=== PATIENT | female | born 1945 | race Caucasian/White ===

== ENCOUNTER → 2020-06-02 | Outpatient (CLI) | payer MEDICARE ==
--- NOTE | 2020-06-02 15:48 | BD ---
EXAMINATION TYPE: Axial Bone Density DATE OF EXAM: 06/02/2020 COMPARISON: NONE CLINICAL HISTORY: 74-year-old female postmenopausal screening Height: 5 FT 6 1/2 IN Weight: 226 FRAX RISK QUESTIONS: Alcohol (3 or more units per day): NO Family History (Parent hip fracture): NO Glucocorticoids (More than 3mos): NO (Ex: prednisone, prednisolone, methylprednisolone, dexamethasone, and hydrocortisone). History of Fracture in Adulthood: NO Secondary Osteoporosis: 1. Type 1 Diabetes: NO 2. Hyperthyroidism: NO 3. Menopause before 45: NO 4. Malnutrition: NO 5. Chronic liver disease: NO Rheumatoid Arthritis: NO Current Tobacco Use: NO RISK FACTORS HISTORY OF: Active: SOMEWHAT Postmenopausal woman: UNSURE Take estrogen and/or progesterone medications: TOOK ONLY FOR ABOUT SIX MONTHS LONG AGO MEDICATIONS: Additional Medications: METFORMIN, BLOOD PRESSURE MEDS, CHOLESTEROL MEDS, INHALER FOR COPD NEEDED Additional History: EXAM MEASUREMENTS: Bone mineral densitometry was performed using the [id number] System. Bone mineral density as measured about the Lumbar spine is: ----- L1-L4(G/cm2): 1.081 T Score Values are as follows: ----- L2: -1.3 ----- L3: -0.5 ----- L4: -1.1 ----- L1-L4: -0.8 BASELINE Bone mineral density about the R hip (g/cm2): 0.706 Bone mineral density about the L hip (g/cm2): 0.682 T Score values are as follows: -----R Neck: -2.4 -----L Neck: -2.6 -----R Total: -2.6 -----L Total: -2.6 BASELINE IMPRESSION: Osteoporosis (T Score less than -2.5). There is increased fracture risk and therapy is usually indicated based on age. Re-Screen 1-2 years. NOTE: T-SCORE=SD OF THE YOUNG ADULT MEAN.
== END | disposition home or self-care (01) ==
LOC: RADBDWWP 09:07
PROVIDERS: ATTEND Family Medicine
DX: M81.8 Other osteoporosis without current pathological fracture (principal)
CPT/HCPCS: 77080

== ENCOUNTER → 2022-06-23 | Outpatient (CLI) | payer MEDICARE ==
--- NOTE | 2022-06-23 18:17 | BD ---
EXAMINATION TYPE: Axial Bone Density DATE OF EXAM: 06/23/2022 COMPARISON: NONE CLINICAL HISTORY: 76 years year old Female. ICD-10 CODE: Z78.0 ASYMPTOMATIC MENOPAUSAL STATE Height: 5 FT 6 1/2 IN Weight: FRAX RISK QUESTIONS: Alcohol (3 or more units per day): NO Family History (Parent hip fracture): NO Glucocorticoids (More than 3mos): NO (Ex: prednisone, prednisolone, methylprednisolone, dexamethasone, and hydrocortisone). History of Fracture in Adulthood: NO Secondary Osteoporosis: 1. Type 1 Diabetes: TYPE 2 2. Hyperthyroidism: NO 3. Menopause before 45: NO 4. Malnutrition: NO 5. Chronic liver disease: NO Rheumatoid Arthritis: NO Current Tobacco Use: FORMER RISK FACTORS HISTORY OF: Surgery to Spine/Hip(right/left)/Wrist (right/left): NO Family History of Osteoporosis: NO Active: NO Diet low in dairy products/other sources of calcium: NO Postmenopausal woman: YES Take estrogen and/or progesterone medications: NO Lost more than 2 inches in height since high school: NO Frequent falls: NO Poor Health: GOOD Hyperparathyroidism: NO Adrenal Insufficiency: NO MEDICATIONS: Additional Medications: METFORMIN, BLOOD PRESSURE MEDS, CHOLESTEROL MEDS, INHALER FOR COPD, Additional History: EXAM MEASUREMENTS: Bone mineral densitometry was performed using the [employer] System. Bone mineral density as measured about the Lumbar spine is: ----- L1-L4(G/cm2): 1.090 T Score Values are as follows: ----- L1: -0.5 ----- L2: -1.0 ----- L3: -0.7 ----- L4: -0.9 ----- L1-L4: -0.8 2020 IMAGES UNAVAILABLE Bone mineral density about the R hip (g/cm2): 0.688 Bone mineral density about the L hip (g/cm2): 0.658 T Score values are as follows: -----R Neck: -2.5 -----L Neck: -2.7 -----R Total: -2.8 -----L Total: -2.7 2020 IMAGES UNAVAILABLE FRAX%s: The graph provided illustrates a 17.1 % chance for a major osteoporotic fx and a 5.7 % chance for the hips probability for fx in 10 years time. IMPRESSION: Osteoporosis (T Score less than -2.5). There is increased fracture risk and therapy is usually indicated based on age. Re-Screen 1-2 years. NOTE: T-SCORE=SD OF THE YOUNG ADULT MEAN.
== END | disposition home or self-care (01) ==
LOC: RADBDWWP 11:13
PROVIDERS: ATTEND Family Medicine
DX: M81.0 Age-related osteoporosis without current pathological fracture (principal); Z78.0 Asymptomatic menopausal state
CPT/HCPCS: 77080

== ENCOUNTER → 2024-08-06 | Outpatient (CLI) | payer MEDICARE ==
--- NOTE | 2024-08-09 19:16 | BD ---
EXAMINATION TYPE: Axial Bone Density DATE OF EXAM: 08/06/2024 CLINICAL HISTORY: 79 years old Female. ICD-10 CODE: Z78.0 ASYMPTOMATIC MENOPAUSAL STATE Height: 64.5 Weight: 224 FRAX RISK QUESTIONS: Family History (Parent hip fracture): no History of Fracture in Adulthood: no Secondary Osteoporosis: no RISK FACTORS HISTORY OF: Surgery to Spine/Hip(right/left)/Wrist (right/left): no MEDICATIONS: Thyroid Medications: no Osteoporosis Medications: yes Which medication: Fosamax How Lon years EXAM MEASUREMENTS: Bone mineral densitometry was performed using the [employer] System. Bone mineral density as measured about the Lumbar spine is: ----- L1-L4(G/cm2): 1.126 T Score Values are as follows: ----- L1: 0.2 ----- L2: -0.6 ----- L3: -0.3 ----- L4: -1.0 ----- L1-L4: -0.4 Z Score Values are as follows: ----- L1: 0.8 ----- L2: 0.0 ----- L3: 0.3 ----- L4: -0.4 ----- L1-L4: 0.2 Bone mineral density has: Increased 3.3% since study of: 06/23/2022 Bone mineral density about the R hip (g/cm2): 0.680 Bone mineral density about the L hip (g/cm2): 0.678 T Score values are as follows: -----R Neck: -2.4 -----L Neck: -2.8 -----R Total: -2.6 -----L Total: -2.6 Z Score values are as follows: -----R Neck: -1.2 -----L Neck: -1.5 -----R Total: -1.6 -----L Total: -1.6 Bone mineral density has: Increased 2.7% since study of: 06/23/2022 FRAX%s: The graph provided illustrates a 18.5% chance for a major osteoporotic fx and a 6.5% chance f or the hips probability for fx in 10 years time. IMPRESSION: Osteoporosis (T Score less than -2.5). There is increased fracture risk and therapy is usually indicated based on age. Re-Screen 1-2 years. NOTE: T-SCORE=SD OF THE YOUNG ADULT MEAN. [facility], , 08/09/2024 7:13 PM
== END | disposition home or self-care (01) ==
LOC: RADBDWWP 15:26
PROVIDERS: ATTEND Family Medicine
DX: Z78.0 Asymptomatic menopausal state
CPT/HCPCS: 77080